=== PATIENT | female | born 1995 | race Hispanic/Latino ===

== ENCOUNTER 2018-09-30 20:26 | Emergency (ER) | payer OTHER ==
[2018-09-30 20:40] VITALS: BP 111/70; PULSE 77; RESP 18; TEMP 98; O2SAT 100
--- NOTE | 2018-09-30 20:56 | ED PDOC ---
Lower Extremity Pain/Injury Time Seen by Provider: 09/30/18 20:45 Chief Complaint (Nursing): Lower Extremity Problem/Injury Chief Complaint (Provider): Lower extremity problem/injury History Per: Patient History/Exam Limitations: no limitations Onset/Duration Of Symptoms: Days (3x) Current Symptoms Are (Timing): Still Present Severity: Moderate Additional Complaint(s): 23 year old female with no past medical history presents to the ED for an evaluation of right knee pain that started 2x days ago. Patient states that 2x days ago she was skiing and crashed into a tree, sustaining right knee pain. Patient reports initially having swelling and pain to the knee, so she iced and elevated it. Patient states being able to ambulate and reports having an improvement in pain, but is concerned because a bruise developed. Patient denies having any other complaints. PMD: None provided Past Medical History Reviewed: Historical Data, Nursing Documentation, Vital Signs Vital Signs: Last Vital Signs Temp 98 F 09/30/18 20:38 Pulse 77 09/30/18 20:38 Resp 18 09/30/18 20:38 BP 111/70 09/30/18 20:38 Pulse Ox 100 09/30/18 20:38 VONNIE Report Viewed: Yes - Medical History PMH: No Chronic Diseases - Surgical History Other surgeries: neck surgery - Family History Family History: States: No Known Family Hx - Social History Current smoker - smoking cessation education provided: No Alcohol: Occasional Drugs: Denies - Home Medications Home Medications: Ambulatory Orders Medication Instructions Recorded RX: Naproxen 375 mg PO Q8 PRN #21 tablet 09/30/18 - Allergies Allergies/Adverse Reactions: Allergies Allergy/AdvReac Type Severity Reaction Status Date / Time gluten Allergy NAUSEA Verified 09/30/18 20:38 lactase [From Dairy Aid] Allergy ITCHING Verified 09/30/18 20:38 shellfish derived Allergy ITCHING Verified 09/30/18 20:38 soy Allergy ITCHING Verified 09/30/18 20:38 Review of Systems ROS Statement: Except As Marked, All Systems Reviewed And Found Negative Musculoskeletal: Positive for: Other (right knee pain) Physical Exam - Reviewed Nursing Documentation Reviewed: Yes Vital Signs Reviewed: Yes - Physical Exam Appears: Positive for: Well, Non-toxic, No Acute Distress Head Exam: Positive for: ATRAUMATIC, NORMOCEPHALIC Skin: Positive for: Normal Color, Warm, Dry Extremity: Positive for: Other (right knee: ecchymosis and mild crepitus. able to flex and extend.) Neurologic/Psych: Positive for: Alert, Oriented (3x) - ECG O2 Sat by Pulse Oximetry: 100 (RA) Pulse Ox Interpretation: Normal - Progress ED Course And Treament: xry of knee left no acute fx Patient given knee immobilizer; but refused crutches Medical Decision Making Medical Decision Makin:45 Initial impression: 23 year old female with knee pain Initial plan: * XRay knee right 3 views * reevaluation Scribe Attestation: Documented byBrenda Ragsdale, acting as a scribe for Gerber Ibrahim PA-C. Provider Scribe Attestation: All medical record entries made by the Scribe were at my direction and personally dictated by me. I have reviewed the chart and agree that the record accurately reflects my personal performance of the history, physical exam, medical decision making, and the department course for this patient. I have also personally directed, reviewed, and agree with the discharge instructions and disposition. Disposition - Clinical Impression Clinical Impression: Knee injury - Patient ED Disposition Is Patient to be Admitted: No - Disposition Referrals: Carlos Martínez III, MD [Staff Provider] - Disposition: Routine/Home Disposition Time: 21:44 Condition: FAIR Prescriptions: RX: Naproxen 375 mg PO Q8 PRN #21 tablet PRN Reason: Pain, Moderate (4-7) Instructions: Knee Sprain (DC) Forms: [facility] ED School/Work Excuse
--- NOTE | 2018-10-01 10:37 | RAD ---
Date of service: 09/30/2018 PROCEDURE: Left Knee Radiographs. HISTORY: Pain. COMPARISON: None. FINDINGS: BONES: No acute fracture or destructive bony lesion identified. JOINTS: Normal. No osteoarthritis. JOINT EFFUSION: None. OTHER FINDINGS: None. IMPRESSION: Normal radiographs of the left knee.
== END 2018-09-30 22:02 | disposition home or self-care (01) ==
LOC: H.ER 20:26
DX: S89.91XA Unspecified injury of right lower leg, initial encounter (principal); W22.09XA Striking against other stationary object, initial encounter; Y93.23 Activity, snow (alpine) (downhill) skiing, snowboarding, sledding, tobogganing and snow tubing